=== PATIENT | female | born 1960 ===

== ENCOUNTER 2017-09-28 12:26 | Emergency (ER) | payer SELFPAY ==
[2017-09-28 12:27] VITALS: BMI 33.3
[2017-09-28 13:05] VITALS: BP 116/81; RESP 16; TEMP 98.7; O2SAT 99
--- NOTE | 2017-09-28 14:46 | ED PDOC ---
HPI: CCC, URI, Sore Throat Time Seen by Provider: 09/28/17 13:38 Chief Complaint (Nursing): Chest Pain Chief Complaint (Provider): Flu like symptoms History Per: Patient History/Exam Limitations: no limitations Have you had recent travel within the past 21 days to any of the following countries: [place], [place], [place] or [place]?: No Onset/Duration Of Symptoms: Days Current Symptoms Are (Timing): Still Present Location Of Pain: Diffuse Myalgias, Headache Associated Symptoms: Fever, Chills, Sore Throat, Cough, Myalgias, Nausea, Vomiting, Diarrhea Additional History Per: Patient Additional Complaint(s): 57yo female with history of HIV (last viral load undetectable), surgical history of bladder surgery, presents to ER with complaints of cough, congestion , headache and bodyaches for the past week. She also reports for the past 3 days , she has had chest pain, fever, has been feeling light headed, and had chills at night. She reports episodes of vomiting and diarrhea for the past couple days as well. She states she was diagnosed with a UTI last week and has completed an antibiotic course; she denies any new dysuria, hematuria. No other complaints. PCP: Dr. Mariscal, Dr. 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, splenectomy - Family History Family History: States: No Known Family Hx - Home Medications Home Medications: Ambulatory Orders Medication Instructions Recorded Albuterol Sulfate [Proair Hfa] 2 puff INH QID PRN 06/02/15 Atorvastatin [Lipitor] 20 mg PO DAILY #0 tab 06/07/15 Darunavir Ethanolate [Prezista] 800 mg PO DAILY #0 tab 06/07/15 Duloxetine HCl 60 mg PO DAILY #0 ecc 06/07/15 Emtricitabine/Tenofovir Diso 1 tab PO DAILY #0 tab 06/07/15 [Truvada 200 MG-300 MG] Enalapril Maleate 20 mg PO DAILY #0 tab 06/07/15 Esomeprazole Magnesium [Nexium] 40 mg PO DAILY #0 ecc 06/07/15 Lactobacillus Acidophilus [Bacid 1 cap PO BID #0 cap 06/07/15 Acidophilus] Moxifloxacin Hydrochloride [Avelox] 400 mg PO DAILY #4 tab 06/07/15 Pregabalin [Lyrica] 300 mg PO BID #0 cap 06/07/15 Ritonavir [Norvir] 100 mg PO DAILY #0 tab 06/07/15 - Allergies Allergies/Adverse Reactions: Allergies Allergy/AdvReac Type Severity Reaction Status Date / Time amoxicillin Allergy URTICARIA Verified 12/05/15 00:54 gentamicin [Gentamicin] Allergy URTICARIA Verified 12/05/15 00:54 Penicillins Allergy URTICARIA Verified 12/05/15 00:54 pineapple Allergy URTICARIA Verified 12/05/15 00:54 Review of Systems ROS Statement: Except As Marked, All Systems Reviewed And Found Negative Constitutional: Positive for: Fever, Chills, Malaise Cardiovascular: Positive for: Chest Pain Respiratory: Positive for: Cough, Sputum. Negative for: Shortness of Breath Gastrointestinal: Positive for: Nausea, Vomiting, Diarrhea Genitourinary Female: Negative for: Dysuria, Hematuria Physical Exam - Reviewed Nursing Documentation Reviewed: Yes Vital Signs Reviewed: Yes - Physical Exam Appears: Positive for: Non-toxic, No Acute Distress Head Exam: Positive for: ATRAUMATIC, NORMAL INSPECTION, NORMOCEPHALIC Skin: Positive for: Normal Color, Warm Eye Exam: Positive for: Normal appearance, EOMI, PERRL ENT: Positive for: Normal ENT Inspection. Negative for: Nasal Congestion, Pharyngeal Erythema, Tonsillar Exudate, Tonsillar Swelling Neck: Positive for: Painless ROM, Supple Cardiovascular/Chest: Positive for: Regular Rate, Rhythm Respiratory: Positive for: Normal Breath Sounds. Negative for: Wheezing Pulses-Radial (L): 2+ Pulses-Radial (R): 2+ Gastrointestinal/Abdominal: Positive for: Normal Exam, Soft. Negative for: Tenderness Back: Positive for: Normal Inspection. Negative for: L CVA Tenderness, R CVA Tenderness Extremity: Positive for: Normal ROM Neurologic/Psych: Positive for: Alert, Oriented. Negative for: Motor/Sensory Deficits - Laboratory Results Result Diagrams: 09/28/17 17:00 - ECG ECG: Positive for: Interpreted By Me, Viewed By Me ECG Rhythm: Positive for: Normal QRS, Sinus Rhythm. Negative for: ST/T Changes Rate: 77 O2 Sat by Pulse Oximetry: 99 (RA) Pulse Ox Interpretation: Normal Medical Decision Making Medical Decision Making: Impression: Flu like symptoms with headache Differential: Influenza, pneumonia, UTI, sepsis less likely Plan: -- Labs -- CXR -- Rapid Flu 14:52 CXR FINDINGS: LUNGS: No active pulmonary disease. PLEURA: No significant pleural effusion identified. No pneumothorax apparent. CARDIOVASCULAR: Normal. OSSEOUS STRUCTURES: Unchanged. VISUALIZED UPPER ABDOMEN: Normal. OTHER FINDINGS: None. IMPRESSION: No active disease. 1803 CT Head FINDINGS: HEMORRHAGE: No intracranial hemorrhage. BRAIN: Diffuse atrophy with prominence of the ventricles and sulci noted. No mass effect or edema. Dense intracranial atherosclerosis. The beck-white matter differentiation appears intact. Please note that MRI with diffusion imaging is more sensitive in the detection of acute ischemic event. VENTRICLES: No hydrocephalus. CALVARIUM: Unremarkable. PARANASAL SINUSES: Mild mucosal thickening of ethmoid air cells. The remainder of the visualized paranasal sinuses appear clear. MASTOID AIR CELLS: Unremarkable as visualized. No inflammatory changes. OTHER FINDINGS: None. IMPRESSION: No acute intracranial pathology identified. Findings as above. Serology report reviewed and patient negative for influenza A/B. Scribe Attestation: Documented by Gloria Lucas acting as a scribe for Rudolph Taylor MD. Provider Attestation: All medical record entries made by the Scribe were at my direction and personally dictated by me. I have reviewed the chart and agree that the record accurately reflects my personal performance of the history, physical exam, medical decision making, and the department course for this patient. I have also personally directed, reviewed, and agree with the discharge instructions and disposition. Disposition - Clinical Impression Clinical Impression: Flu-like symptoms - Patient ED Disposition Is Patient to be Admitted: No Doctor Will See Patient In The: Office Counseled Patient/Family Regarding: Studies Performed, Diagnosis, Need For Followup - Disposition Referrals: Apolinar Mcmahon MD [Staff Provider] - Disposition: Routine/Home Disposition Time: 18:46 Condition: GOOD Additional Instructions: Return for worsening. Follow up with your PCP in 2-3 days. Instructions: Viral Syndrome (ED)
--- NOTE | 2017-09-28 14:54 | RAD ---
HISTORY: chest pain cough fever COMPARISON: Chest radiograph dated 12/23/2015. TECHNIQUE: Chest PA and lateral FINDINGS: LUNGS: No active pulmonary disease. PLEURA: No significant pleural effusion identified. No pneumothorax apparent. CARDIOVASCULAR: Normal. OSSEOUS STRUCTURES: Unchanged. VISUALIZED UPPER ABDOMEN: Normal. OTHER FINDINGS: None. IMPRESSION: No active disease.
[2017-09-28 17:17] LABS: BASO # 0.1 K/uL (0.0-0.2); BASO % 1.8 % (0.0-2.0); EOS # 0.1 K/uL (0.0-0.7); HEMOGLOBIN 11.3 g/dL (12.0-16.0); LYMPH # 4.7 K/uL (1.0-4.3); LYMPH % 69.3 % (20.0-40.0); MEAN CELL VOLUME 97.1 fl (81.0-99.0); MEAN CORPUSCULAR HEMOGLOBIN 31.2 pg (27.0-31.0); MEAN CORPUSCULAR HGB CONC 32.1 g/dL (33.0-37.0); MEAN PLATELET VOLUME 9.7 fl (7.2-11.7); MONO # 0.7 K/uL (0.0-0.8); MONO % 9.6 % (0.0-10.0); NEUT # 1.2 K/uL (1.8-7.0); NEUT % 17.3 % (50.0-75.0); NRBC % 1.2 % (0.0-0.0); RBC 3.61 Mil/uL (3.80-5.20); WHITE BLOOD COUNT 6.8 K/uL (4.8-10.8)
--- NOTE | 2017-09-28 17:59 | CT ---
PROCEDURE: CT HEAD WITHOUT CONTRAST. HISTORY: headache COMPARISON: Noncontrast head CT performed 06/02/15 TECHNIQUE: Axial computed tomography images were obtained through the head/brain without intravenous contrast. Radiation dose: Total exam DLP = 824.32 mGy-cm. This CT exam was performed using one or more of the following dose reduction techniques: Automated exposure control, adjustment of the mA and/or kV according to patient size, and/or use of iterative reconstruction technique. FINDINGS: HEMORRHAGE: No intracranial hemorrhage. BRAIN: Diffuse atrophy with prominence of the ventricles and sulci noted. No mass effect or edema. Dense intracranial atherosclerosis. The beck-white matter differentiation appears intact. Please note that MRI with diffusion imaging is more sensitive in the detection of acute ischemic event. VENTRICLES: No hydrocephalus. CALVARIUM: Unremarkable. PARANASAL SINUSES: Mild mucosal thickening of ethmoid air cells. The remainder of the visualized paranasal sinuses appear clear. MASTOID AIR CELLS: Unremarkable as visualized. No inflammatory changes. OTHER FINDINGS: None. IMPRESSION: No acute intracranial pathology identified. Findings as above.
[2017-09-28 18:38] LABS: SQUAMOUS EPITHIAL 1 /hpf (0-5); URINE BILIRUBIN NEGATIVE (NEGATIVE); URINE BLOOD NEGATIVE (NEGATIVE); URINE CLARITY CLEAR (Clear); URINE COLOR YELLOW (YELLOW); URINE GLUCOSE (UA) NEG (Normal); URINE LEUKOCYTE ESTERASE NEG Leu/uL (Negative); URINE NITRATE NEGATIVE (NEGATIVE); URINE PROTEIN NEGATIVE (NEGATIVE); URINE UROBILINOGEN 0.2-1.0 mg/dL (0.2-1.0)
[2017-09-28 18:53] VITALS: PULSE 77
[2017-09-28 19:02] LABS: BLOOD UREA NITROGEN 12 mg/dl (7-17); GFR AFRICAN-AMERICAN > 60; GFR NON-AFRICAN AMERICAN > 60
[2017-09-28 19:03] LABS: CALCIUM 9.7 mg/dL (8.4-10.2)
--- NOTE | 2017-09-29 14:50 | CARD ---
APPROVED REPORT EKG Measurement Heart [id number] <Conclusion> Normal sinus rhythm Possible septal infarct, age undetermined Abnormal ECG
== END 2017-09-28 19:22 | disposition home or self-care (01) ==
LOC: H.ER 12:26
DX: B34.9 Viral infection, unspecified (principal); R19.7 Diarrhea, unspecified; E11.9 Type 2 diabetes mellitus without complications; E78.00 Pure hypercholesterolemia, unspecified; I10 Essential (primary) hypertension; Z88.0 Allergy status to penicillin
CPT/HCPCS: 70450; 71046; 80048; 81003; 84484; 85025; 87040; 87804; 93005; 96372; 99283; J1885

== ENCOUNTER 2018-01-31 11:23 | Emergency (ER) | payer OTHER ==
[2018-01-31 11:27] VITALS: BMI 31.2
--- NOTE | 2018-01-31 11:45 | ED PDOC ---
HPI: General Adult Time Seen by Provider: 01/31/18 11:43 Chief Complaint (Provider): vomiting, diarrhea History Per: Patient Additional Complaint(s): 57-year-old female presents with vomiting and diarrhea ongoing for 1 week. Patient denies fever or chills. She states she is unable to keep down liquids or solids. Patient states after she ate breakfast today she vomited about 10 minutes later. She states the diarrhea is watery and nonbloody and she has mild intermittent cramping abdominal pain. Patient denies recent travel or consumption of any foods that could've caused stomach upset. PMD: [facility] Past Medical History Reviewed: Historical Data, Nursing Documentation, Vital Signs Vital Signs: Last Vital Signs Temp 98.1 F 01/31/18 11:27 Pulse 80 01/31/18 11:27 Resp 17 01/31/18 11:27 BP 123/76 01/31/18 11:27 Pulse Ox 96 01/31/18 16:27 - Medical History PMH: Arthritis, Diabetes, HIV, HTN, Hypercholesterolemia - Surgical History Surgical History: - Family History Family History: States: No Known Family Hx - Living Arrangements Living Arrangements: With Family - Social History Current smoker - smoking cessation education provided: No Alcohol: None Drugs: Denies - Home Medications Home Medications: Ambulatory Orders Medication Instructions Recorded Albuterol Sulfate [Proair Hfa] 2 puff INH QID PRN 06/02/15 Atorvastatin [Lipitor] 20 mg PO DAILY #0 tab 06/07/15 Darunavir Ethanolate [Prezista] 800 mg PO DAILY #0 tab 06/07/15 Duloxetine HCl 60 mg PO DAILY #0 ecc 06/07/15 Emtricitabine/Tenofovir Diso 1 tab PO DAILY #0 tab 06/07/15 [Truvada 200 MG-300 MG] Enalapril Maleate 20 mg PO DAILY #0 tab 06/07/15 Esomeprazole Magnesium [Nexium] 40 mg PO DAILY #0 ecc 06/07/15 Lactobacillus Acidophilus [Bacid 1 cap PO BID #0 cap 06/07/15 Acidophilus] Moxifloxacin Hydrochloride [Avelox] 400 mg PO DAILY #4 tab 06/07/15 Pregabalin [Lyrica] 300 mg PO BID #0 cap 06/07/15 Ritonavir [Norvir] 100 mg PO DAILY #0 tab 06/07/15 Dicyclomine [Bentyl] 10 mg PO QID PRN #20 cap 01/31/18 Ondansetron [Zofran Odt] 4 mg PO ASDIR PRN #15 odt 01/31/18 - Allergies Allergies/Adverse Reactions: Allergies Allergy/AdvReac Type Severity Reaction Status Date / Time amoxicillin Allergy URTICARIA Verified 12/05/15 00:54 gentamicin [Gentamicin] Allergy URTICARIA Verified 12/05/15 00:54 Penicillins Allergy URTICARIA Verified 12/05/15 00:54 pineapple Allergy URTICARIA Verified 12/05/15 00:54 Review of Systems ROS Statement: Except As Marked, All Systems Reviewed And Found Negative Constitutional: Negative for: Fever, Chills, Weakness Cardiovascular: Negative for: Chest Pain Respiratory: Negative for: Cough Gastrointestinal: Positive for: Nausea, Vomiting, Abdominal Pain, Diarrhea. Negative for: Constipation, Melena, Hematochezia, Hematemesis, Rectal Pain Genitourinary Female: Negative for: Dysuria Physical Exam - Reviewed Nursing Documentation Reviewed: Yes Vital Signs Reviewed: Yes - Physical Exam Appears: Positive for: Well Skin: Positive for: Normal Color. Negative for: Rash Eye Exam: Positive for: Normal appearance Neck: Positive for: Normal Cardiovascular/Chest: Positive for: Regular Rate, Rhythm Respiratory: Positive for: Normal Breath Sounds Gastrointestinal/Abdominal: Positive for: Tenderness (mild diffuse tenderness in all 4 quadrants, no rebound, no guarding, no distention, normoactive bowel sounds in all 4 quadrants) Back: Negative for: L CVA Tenderness, R CVA Tenderness Extremity: Positive for: Normal ROM Neurologic/Psych: Positive for: Alert, Oriented - Laboratory Results Result Diagrams: 01/31/18 12:26 01/31/18 13:11 Urine dip results: Positive for: Ketones. Negative for: Leukocyte Esterase, Blood, Nitrate, Glucose, Bilirubin, Protein - ECG O2 Sat by Pulse Oximetry: 96 Pulse Ox Interpretation: Normal - Other Rad Abd US X-Ray: Read By Radiologist X-Ray Interpretation: see below Medical Decision Making Medical Decision Makin:25 57 year old with vomiting, diarrhea and abdominal pain Plan: CBC CMP Lipase Urine dip Stool culture C diff toxin Ova and parasites Abd US IVF IV zofran US: LIVER: Measures 18.6 cm. Diffusely increased echogenicity of the liver parenchyma appears somewhat more apparent in the interval compatible with hepatic steatosis though other etiologies are possible. No mass. No intrahepatic bile duct dilatation. Normal directional portal venous blood flow. GALLBLADDER: No significant mural thickening is seen with the gallbladder mildly distended. A small polyp or focal adenomyosis is seen at the dependent gallbladder wall 4.6 mm size with no posterior acoustic shadowing related. No pericholecystic fluid collection. COMMON BILE DUCT: Measures 4.0 mm. No stones. No dilatation. PANCREAS: Pancreas is obscured by overlying bowel gas and poorly characterized as result. RIGHT KIDNEY: Measures 10.7cm. Normal echogenicity. No calculus, mass, or hydronephrosis. A simple cyst measures 2.1 x 2.1 x 1.7 cm related to the upper pole right kidney, slightly exophytic, slightly smaller in the interval. LEFT KIDNEY: Measures 11.5cm. Normal echogenicity. No calculus, mass, or hydronephrosis. SPLEEN: Normal in size and contour. No mass. AORTA: No aneurysmal dilatation. IVC: Unremarkable. OTHER FINDINGS: None. IMPRESSION: 1. A small polyp or area of localized adenomyosis seen at the dependent gallbladder wall 4.6 mm greatest dimension. No mural thickening or pericholecystic fluid collection appreciated. CBD caliber is normal. No definitive intrahepatic biliary duct dilatation evident. 2. Mild hepatomegaly reiterated, potentially increase in size without focal mass appreciated throughout the hepatic parenchyma. Hepatic steatosis suggested once again, possibly increased. 3. Pancreas is poorly evaluated due to extensive overlying bowel gas. 4. Simple cyst upper pole right kidney slightly diminished in the interval. 2:40 pm: Patient still has pain to abdomen and states she still has nausea. Patient has not had bowel movements since arrival to ED, unable to obtain stool culture as of yet. Toradol 30 mg IV administered along with 10 mg IV Reglan. 4:10 pm: Patient states she feels much better. She did not have BM in ED, unable to collet stool sample. Patient was able to tolerate 2 cups of water and 2 cups of juice. She would like to go home. Prescriptions for Zofran and Bentyl provided, dietary instructions given. Patient has follow-up on Wednesday with clinic. C diff toxin sent, will have results in 2-3 days. Disposition - Clinical Impression Clinical Impression: Gastroenteritis - Patient ED Disposition Is Patient to be Admitted: No Counseled Patient/Family Regarding: Studies Performed, Diagnosis, Need For Followup, Rx Given - Disposition Referrals: Shital Mariscal MD [Primary Care Provider] - [facility] [Outside] Disposition: Routine/Home Disposition Time: 16:13 Condition: IMPROVED Additional Instructions: Take prescription meds as directed. Drink plenty of clear liquids and follow bland diet. Avoid anything spicy, avoid fruits and vegetables, stick with toast , plain pasta or plain Rice. For relief of diarrhea followed BRAT diet - bananas , rice, apples, toast. Follow-up as scheduled Wednesday with clinic or return if acutely worse. Prescriptions: Dicyclomine [Bentyl] 10 mg PO QID PRN #20 cap PRN Reason: Gi Distress Ondansetron [Zofran Odt] 4 mg PO ASDIR PRN #15 odt PRN Reason: Nausea/Vomiting Instructions: Diarrhea in Adolescents and Adults, [place] Diet, Gastroenteritis ( ED) Forms: [facility] ED School/Work Excuse Results - Lab Results Lab Results: 01/31/18 01/31/18 01/31/18 14:12 13:11 12:26 WBC 11.7 H RBC 3.86 Hgb 12.1 Hct 37.7 MCV 97.8 D MCH 31.5 H MCHC 32.2 L RDW 15.5 H Plt Count 403 H MPV 10.7 Neut % (Auto) 61.8 Lymph % (Auto) 31.9 [place] % (Auto) 4.9 Eos % (Auto) 0.9 Baso % (Auto) 0.5 Neut # (Auto) 7.2 H Lymph # (Auto) 3.7 [place] # (Auto) 0.6 Eos # (Auto) 0.1 Baso # (Auto) 0.1 Sodium 139 Potassium 4.1 Chloride 100 Carbon Dioxide 24 Anion Gap 19 BUN 11 Creatinine 0.9 Est GFR ( Amer) > 60 Est GFR (Non-Af Amer) > 60 Random Glucose 89 Calcium 9.3 Total Bilirubin 0.6 AST 21 ALT 24 Alkaline Phosphatase 59 Total Protein 8.1 Albumin 4.4 Globulin 3.7 Albumin/Globulin Ratio 1.2 Lipase 64
[2018-01-31] MEDS: Sodium Chloride 0.9% 1,000 ML IV STA (12:31)
[2018-01-31 12:54] LABS: BASO # 0.1 K/uL (0.0-0.2); BASO % 0.5 % (0.0-2.0); EOS # 0.1 K/uL (0.0-0.7); EOS % 0.9 % (0.0-4.0); HEMOGLOBIN 12.1 g/dL (12.0-16.0); LYMPH # 3.7 K/uL (1.0-4.3); LYMPH % 31.9 % (20.0-40.0); MEAN CELL VOLUME 97.8 fl (81.0-99.0); MEAN CORPUSCULAR HEMOGLOBIN 31.5 pg (27.0-31.0); MEAN CORPUSCULAR HGB CONC 32.2 g/dL (33.0-37.0); MEAN PLATELET VOLUME 10.7 fl (7.2-11.7); MONO # 0.6 K/uL (0.0-0.8); MONO % 4.9 % (0.0-10.0); NEUT # 7.2 K/uL (1.8-7.0); NEUT % 61.8 % (50.0-75.0); NRBC % 0.1 % (0.0-0.0); RBC 3.86 Mil/uL (3.80-5.20); RED CELL DISTRIBUTION WIDTH 15.5 % (11.5-14.5); WHITE BLOOD COUNT 11.7 K/uL (4.8-10.8)
[2018-01-31 13:39] LABS: ALB/GLOB RATIO 1.2 (1.0-2.1); ALBUMIN 4.4 g/dL (3.5-5.0); ALT/SGPT 24 U/L (9-52); AST/SGOT 21 U/L (14-36); BLOOD UREA NITROGEN 11 mg/dl (7-17); CALCIUM 9.3 mg/dL (8.4-10.2); GFR AFRICAN-AMERICAN > 60; GFR NON-AFRICAN AMERICAN > 60
--- NOTE | 2018-01-31 13:54 | US ---
HISTORY: abd pain, vomiting COMPARISON: Complete abdomen ultrasound 06/06/2015. TECHNIQUE: Sonographic evaluation of the abdomen. FINDINGS: LIVER: Measures 18.6 cm. Diffusely increased echogenicity of the liver parenchyma appears somewhat more apparent in the interval compatible with hepatic steatosis though other etiologies are possible. No mass. No intrahepatic bile duct dilatation. Normal directional portal venous blood flow. GALLBLADDER: No significant mural thickening is seen with the gallbladder mildly distended. A small polyp or focal adenomyosis is seen at the dependent gallbladder wall 4.6 mm size with no posterior acoustic shadowing related. No pericholecystic fluid collection. COMMON BILE DUCT: Measures 4.0 mm. No stones. No dilatation. PANCREAS: Pancreas is obscured by overlying bowel gas and poorly characterized as result. RIGHT KIDNEY: Measures 10.7cm. Normal echogenicity. No calculus, mass, or hydronephrosis. A simple cyst measures 2.1 x 2.1 x 1.7 cm related to the upper pole right kidney, slightly exophytic, slightly smaller in the interval. LEFT KIDNEY: Measures 11.5cm. Normal echogenicity. No calculus, mass, or hydronephrosis. SPLEEN: Normal in size and contour. No mass. AORTA: No aneurysmal dilatation. IVC: Unremarkable. OTHER FINDINGS: None. IMPRESSION: 1. A small polyp or area of localized adenomyosis seen at the dependent gallbladder wall 4.6 mm greatest dimension. No mural thickening or pericholecystic fluid collection appreciated. CBD caliber is normal. No definitive intrahepatic biliary duct dilatation evident. 2. Mild hepatomegaly reiterated, potentially increase in size without focal mass appreciated throughout the hepatic parenchyma. Hepatic steatosis suggested once again, possibly increased. 3. Pancreas is poorly evaluated due to extensive overlying bowel gas. 4. Simple cyst upper pole right kidney slightly diminished in the interval.
[2018-01-31 17:35] VITALS: BP 110/68; PULSE 84; RESP 20; TEMP 98.6; O2SAT 98
== END 2018-01-31 17:34 | disposition home or self-care (01) ==
LOC: SUPCPDRO 11:23 → H.ER 11:23
DX: K52.9 Noninfective gastroenteritis and colitis, unspecified (principal); E11.9 Type 2 diabetes mellitus without complications; E78.00 Pure hypercholesterolemia, unspecified; I10 Essential (primary) hypertension; Z88.0 Allergy status to penicillin; N28.1 Cyst of kidney, acquired; N80.0 Endometriosis of uterus
CPT/HCPCS: 76700; 80053; 83690; 85025; 96374; 96375; 99284; J1885; J2405; J2765; J7030